=== PATIENT | male | born 1980 | race Caucasian/White ===

== ENCOUNTER 2019-03-19 05:19 | Emergency (ER) | payer OTHER, SELFPAY ==
--- NOTE | 2019-03-19 05:24 | ED_ITS ---
HPI - Back Pain/Injury General Chief Complaint: Back Pain/Injury Stated Complaint: back pain Time Seen by Provider: 03/19/19 05:21 Source: patient and family Mode of arrival: Ambulatory Limitations: no limitations History of Present Illness HPI Narrative: 38-year-old male nonsmoker with benign medical history presents with a chief complaint of severe sudden onset right flank pain with radiation around his right groin. He denies provocation or palliation. He states he was have intercourse and thinks he bent back awkwardly and felt this pain. He cannot find a position of comfort. He is nauseated has vomited a few times. Denies any history of the same even when he had a slipped disc. MD Complaint: back pain Onset (ago): hour(s) Duration: intermittent Similar Symptoms Previously: No Location: right flank Severity: severe Quality: sharp and aching Radiation: groin and flank Relieving factors: none Exacerbating factors: none Context: while lifting and turning/twisting Related Data Home Medications Medication Instructions Recorded Confirmed [ANTIBIOTIC-UNKNOWN] #0 06/20/08 [PAIN MEDICATION-UNK] #0 06/20/08 Previous Rx's Medication Instructions Recorded hydrocodone-acetaminophen 1 tab PO Q4-6H PRN #10 tab 03/19/19 ketorolac 10 mg PO Q6H PRN #14 tab 03/19/19 ondansetron 4 mg PO TID-QID PRN #10 tab 03/19/19 tamsulosin [Flomax] 0.4 mg PO DAILY #10 cap 03/19/19 Allergies Allergy/AdvReac Type Severity Reaction Status Date / Time No Known Drug Allergies Allergy Verified 03/19/19 06:09 Review of Systems Constitutional Constitutional: Denies chills, Denies fatigue, Denies fever(s), Denies frequent falls, Denies lethargy and Denies weakness Eyes Eyes: Denies change in vision, Denies eye discharge, Denies irritation and Denies loss of vision ENT Ears, Nose, Mouth, and Throat: Denies change in voice, Denies dizziness, Denies neck pain, Denies sore throat and Denies throat swelling Cardiovascular Cardiovascular: Denies chest pain, Denies irregular heart rhythm, Denies lightheadedness, Denies palpitations, Denies dyspnea, Denies dyspnea on exertion and Denies orthopnea Respiratory Respiratory: Denies cough, Denies dyspnea, Denies dyspnea on exertion and Denies wheezing Gastrointestinal Gastrointestinal: Denies abdominal pain, Denies change in bowel habits, Denies diarrhea, Reports nausea and Reports vomiting Genitourinary Genitourinary: Denies hematuria, Denies flank pain, Denies urinary incontinence and Denies urinary urgency Musculoskeletal Musculoskeletal: Denies back pain, Denies muscle weakness, Denies neck pain, Denies numbness and Denies tingling Integumentary/Breasts Skin/Breast: Denies pruritus, Denies erythema, Denies rash and Denies wounds Neurologic Neurologic: Denies behavioral changes, Denies confusion, Denies dizziness, Denies frequent falls, Denies loss of vision, Denies numbness, Denies tingling and Denies weakness Psychiatric Psychiatric: Denies anxiety, Denies behavioral changes, Denies confusion, Denies depression, Denies homicidal ideation and Denies suicidal ideation Endocrine Endocrine: Denies fatigue, Denies flushing and Denies palpitations Hematologic/Lymphatic Hematologic/Lymphatic: Denies easy bruising Allergic/Immunologic Allergic/Immunologic: Denies urticaria, Denies throat swelling and Denies wheezing PFSH Social History Smoking Status: Never smoker Social History Smoking Status: Never smoker Exam Narrative Exam Narrative: GENERAL: [38] year old patient appears stated age. Well- nourished, well-developed patient, in severe distress. Pacing in his room and clutching his right flank HEAD: Atraumatic. Normocephalic. EYES: Pupils equal round and reactive. Extraocular motions intact. No scleral icterus. No injection or drainage. ENT: Nose without bleeding, purulent drainage. Throat without erythema, tonsillar hypertrophy or exudate. Airway patent. NECK: Trachea midline. Non tender CARDIOVASCULAR: Regular rate and rhythm without murmurs, gallops, or rubs. RESPIRATORY: Clear to auscultation. Breath sounds equal bilaterally. No wheezes, rales, or rhonchi. GASTROINTESTINAL: Abdomen soft, non-tender, nondistended. EXTREMITIES: No edema or joint tenderness. BACK: Nontender without deformity or crepitance. No flank tenderness. NEURO: AOx3. SKIN: No rash or erythema of visible areas Initial Vital Signs Initial Vital Signs: Vital Signs Temperature 97.9 F 03/19/19 05:30 Pulse Rate 78 09/28/19 05:30 Respiratory Rate 24 03/19/19 05:30 Blood Pressure 168/104 H 03/19/19 05:30 Pulse Oximetry 100 03/19/19 05:30 Course Orders Ordered: Discontinued Medications Hydrocodone Bitart/Acetaminophen (Vicodin Prepack) 1 bottle MISC SEEINSTR ONE Stop: 03/19/19 06:58 Last Admin: 03/19/19 07:17 Dose: 1 bottle Documented by: ESTER Sodium Chloride (Normal Saline 0.9%) 1,000 mls @ 1,000 mls/hr IV BOLUS ONE Stop: 03/19/19 06:28 Last Infusion: 03/19/19 07:14 Dose: 0 mls/hr Documented by: Admin: 03/19/19 05:39 Dose: 1,000 mls/hr Documented by: RANDEE Lidocaine HCl 9 ml/ Sodium (Chloride) 59 mls @ 354 mls/hr IV NOW ONE Stop: 03/19/19 06:06 Last Infusion: 03/19/19 07:15 Dose: 354 mls/hr Documented by: Admin: 03/19/19 06:15 Dose: 354 mls/hr Documented by: ESTER Ketorolac Tromethamine (Toradol) 30 mg IV NOW ONE Stop: 03/19/19 05:30 Last Admin: 03/19/19 05:44 Dose: Not Given Documented by: ESTER Ketorolac Tromethamine (Toradol) 15 mg IV NOW ONE Stop: 03/19/19 05:35 Last Admin: 03/19/19 05:39 Dose: 15 mg Documented by: RANDEE Ondansetron HCl (Zofran) 4 mg IV NOW ONE Stop: 03/19/19 05:30 Last Admin: 03/19/19 05:30 Dose: 4 mg Documented by: ESTER Ondansetron HCl (Zofran Odt Prepack) 1 bottle MISC SEEINSTR ONE Stop: 03/19/19 06:58 Last Admin: 03/19/19 07:17 Dose: 1 bottle Documented by: ESTER Vital Signs Vital signs: Vital Signs - 8 hr 03/19/19 05:30 Temperature 97.9 F Pulse Rate 78 Respiratory Rate 24 Blood Pressure [Left Arm] 168/104 H Pulse Oximetry 100 MDM - Back Pain/Injury Lab Data Result diagrams: 03/19/19 05:20 03/19/19 05:20 Labs: Lab Results 03/19/19 03/19/19 03/19/19 Range/Units 05:20 05:20 08:40 WBC 8.7 (4.5-11.0) X10^3/uL RBC 5.56 (4.5-5.9) X10^6/uL Hgb 16.2 (13.5-17.5) g/dL Hct 46.7 (41-53) % MCV 83.9 (80-100) fL MCH 29.2 (26-34) PG MCHC 34.8 (30-36) % RDW 14.2 (11.6-14.8) % Plt Count 319 (150-400) X10^3/uL Neut % (Auto) 58.2 (50-75) % Lymph % (Auto) 34.1 (25-40) % [place] % (Auto) 5.9 (3-14) % Eos % (Auto) 0.9 L (2-4) % Baso % (Auto) 0.9 (0-2) % Neut # (Auto) 5100 (2269-3821) /uL Lymph # (Auto) 3000 (1871-9788) /uL [place] # (Auto) 500 (0-900) /uL Eos # (Auto) 100 (0-450) /uL Baso # (Auto) 100 (0-100) /uL Sodium 140 (137-145) mmol/L Potassium 4.1 (3.4-5.1) mmol/L Chloride 103 (98-107) mmol/L Carbon Dioxide 23 (22-32) mmol/L BUN 13 (9-20) mg/dL Creatinine 1.00 (0.66-1.25) mg/dL Estimated GFR > 60.0 (>60) mL/min BUN/Creatinine Ratio 13.0 (6-22) Glucose 143 H (70-100) mg/dL Calcium 9.7 (8.4-10.2) mg/dL Urine RBC >100/hpf (0-5/HPF) Urine WBC 0-1/hpf (0-5/HPF) Urine Bacteria Occasional (0-1) (None) Urine Mucus 1+ H (Negative) Ur Culture Indicated? Cult not indicated Urine Dip Bedside Urine Glucose Negative Bedside Urine Bilirubin - Negative Bedside Urine Ketone - Negative Urine Specific [place] 1.015 Bedside Urine Occult Blood +++ Bedside Urine pH 7.0 Bedside Urine Protein + 30 Bedside Urine Urobilinogen +/- 1mg Bedside Urine Nitrite - Negative Bedside Urine Leukocytes - Negative Esterase Discharge Plan Departure Patient Disposition: Home Clinical Impression: Kidney stone on right side Discharge Date/Time: 03/19/19 08:57 Instructions: DI for Kidney Stones Activity Restrictions/Additional Instructions: *You have been diagnosed with [kidney stones] *What to do: *Take medications as directed *Follow up with your primary care provider in 2-3 days, call for an appointment. Let them know you were seen in the Emergency Department and that we ask that you be seen in follow up *Return to ER if you should have any new, worsening or concerning symptoms Prescriptions: New tamsulosin [Flomax] 0.4 mg capsule 0.4 mg PO DAILY Qty: 10 RF: 0 hydrocodone-acetaminophen 5-325 mg tablet 1 tab PO Q4-6H PRN (Reason: pain) Qty: 10 RF: 0 ketorolac 10 mg tablet 10 mg PO Q6H PRN (Reason: pain) Qty: 14 RF: 0 ondansetron 4 mg tablet,disintegrating 4 mg PO TID-QID PRN (Reason: nausea and vomiting) Qty: 10 RF: 0 No Action [ANTIBIOTIC-UNKNOWN] Qty: 0 RF: 0 [PAIN MEDICATION-UNK] Qty: 0 RF: 0 Referrals: Mabel Yen MD [Non-Staff] -
[2019-03-19 05:30] VITALS: BP 168/104; PULSE 78; RESP 24; TEMP 36.6; O2SAT 100
[2019-03-19] MEDS: ONDANSETRON 4 MG/2 ML INJ IV (05:30)
--- NOTE | 2019-03-19 05:30 | DI.CT.S_ITS ---
PROCEDURE: CT ABDOMEN PELVIS WO CON INDICATIONS: severe sudden onset R flank pain radiates to groin TECHNIQUE: Noncontrast 5 mm thick sections acquired from the diaphragms to the symphysis. 5 mm thick coronal and sagittal reformats were then performed. For radiation dose reduction, the following was used: automated exposure control, adjustment of mA and/or kV according to patient size. COMPARISON: None. FINDINGS: Image quality: Excellent. Lung bases: There is a small pulmonary nodule in the left lower lobe measuring up to 5 mm mild dependent atelectasis is noted bilaterally. Heart size is normal. Urinary system: There is a small renal stone in the proximal to mid right ureter measuring up to 4 mm with associated mild right hydroureteronephrosis with minimal perinephric and periureteral fat stranding. No additional renal stones identified. No left hydronephrosis. The left ureter is normal in caliber. Bladder wall thickness is normal; no calcified bladder stones. Other solid organs: Noncontrast evaluation of the liver demonstrates no focal lesions. Gallbladder appears within normal limits. Pancreas is normal in contours. Spleen is normal in size. No adrenal nodules. Peritoneum and bowel: Small and large bowel loops demonstrate normal wall thickness and caliber. The appendix is normal in appearance. No free fluid or air. Nodes and vessels: No retroperitoneal or mesenteric adenopathy by size criteria. Aorta and inferior vena cava are normal in caliber. Abdominal wall: No ventral hernias. Pelvis: No free pelvic fluid. No inguinal hernias or adenopathy. Bones: No suspicious bony lesions. No vertebral body compression fractures. IMPRESSION: 1. Small obstructing 4 mm stone in the proximal to mid right ureter with mild right hydroureteronephrosis. 2. Small indeterminate 5 mm left lower lobe pulmonary nodule. If patient is at high risk for malignancy, recommend a followup CT in 12 months to demonstrate stability. Concordant with preliminary interpretation Dictated by: Michael Alexis M.D. on 03/19/2019 at 7:01 Approved by: Michael Alexis M.D. on 03/19/2019 at 7:06
[2019-03-19] MEDS: SODIUM CHLORIDE 0.9% 1,000 ML 1000 ML IV (05:39)
[2019-03-19] MEDS: KETOROLAC 60 MG/2 ML VIAL 15 MG IV (05:39)
[2019-03-19 05:43] LABS: Add Manual Diff / Slide Review NO; Basophils Absolute Auto 100 /uL (0-100); Basophils Percent Auto 0.9 % (0-2); Eosinophils Absolute Auto 100 /uL (0-450); Eosinophils Percent Auto 0.9 % (2-4); Hematocrit 46.7 % (41-53); Hemoglobin 16.2 g/dL (13.5-17.5); Lymphocytes Absolute Auto 3000 /uL (1100-4500); Lymphocytes Percent Auto 34.1 % (25-40); Mean Corpuscular HGB Conc 34.8 % (30-36); Mean Corpuscular Hemoglobin 29.2 PG (26-34); Mean Corpuscular Volume 83.9 fL (80-100); Monocytes Absolute Auto 500 /uL (0-900); Monocytes Percent Auto 5.9 % (3-14); Neutrophils Absolute Auto 5100 /uL (1500-7000); Neutrophils Percent Auto 58.2 % (50-75); Platelet Count 319 X10^3/uL (150-400); Red Blood Cell Count 5.56 X10^6/uL (4.5-5.9); Red Cell Distribution Width 14.2 % (11.6-14.8); White Blood Cell Count 8.7 X10^3/uL (4.5-11.0)
[2019-03-19 05:51] LABS: Blood Urea Nitrogen 13 mg/dL (9-20); Calcium 9.7 mg/dL (8.4-10.2); Carbon Dioxide 23 mmol/L (22-32); Chloride 103 mmol/L (98-107); Estimated Glomerular Filt Rate > 60.0 mL/min (>60); Glucose 143 mg/dL (70-100); HEMOLYSIS 23 (0-50); Potassium 4.1 mmol/L (3.4-5.1); Sodium 140 mmol/L (137-145)
[2019-03-19] MEDS: LIDOCAINE 2% IV (06:15)
[2019-03-19] MEDS: SODIUM CHLORIDE 0.9% IV (06:15)
[2019-03-19] MEDS: ONDANSETRON 4 MG ODT PREPACK 1 BOTTLE MISC (07:17)
[2019-03-19] MEDS: HYDROCODONE/ACET 5/325 PREPACK 1 BOTTLE MISC (07:17)
[2019-03-19 07:20] VITALS: BP 160/96; PULSE 73; RESP 16; O2SAT 98
[2019-03-19 08:49] VITALS: BP 163/83; PULSE 76; RESP 16; O2SAT 100
[2019-03-19 09:32] LABS: Bacteria Urine Occasional (0-1); Culture Indicated Urine Cult Not Indicated; Mucus Urine 1+ (Negative); RBC Urine >100/HPF (0-5/HPF); WBC Urine 0-1/HPF (0-5/HPF)
== END 2019-03-19 08:57 | disposition home or self-care (01) ==
PROVIDERS: Emergency Medicine; Emergency Provider Emergency Medicine
DX: N20.0 Calculus of kidney (principal)
CPT/HCPCS: 36415; 74176; 80048; 81003; 81015; 85025; 96361; 96365; 96375; 99283; 99284; J1885; J2405

== ENCOUNTER → 2020-09-21 14:53 | Outpatient (CLI) | payer OTHER, SELFPAY ==
[2020-09-21] MEDS: COVID-19 VACC #1, MRNA(MOD) 100 MCG/0.5 ML VIAL IM (14:59)
== END ==
PROVIDERS: Visit Provider Internal Medicine
DX: Z23 Encounter for immunization (principal)
CPT/HCPCS: 0011A; 91301

== ENCOUNTER → 2020-10-18 13:16 | Outpatient (ROUT) | payer OTHER, SELFPAY ==
[2020-10-18 14:15] LABS: COVID19 -Nasal RAPID Negative (Negative)
== END ==
PROVIDERS: Visit Provider Family Medicine
DX: Z20.822 Contact with and (suspected) exposure to COVID-19 (principal)
CPT/HCPCS: 87635

== ENCOUNTER → 2020-10-19 14:49 | Outpatient (CLI) | payer OTHER, SELFPAY ==
[2020-10-19] MEDS: COVID-19 VACC #2, MRNA(MOD) 100 MCG/0.5 ML VIAL IM (14:57)
== END ==
PROVIDERS: Visit Provider Internal Medicine
DX: Z23 Encounter for immunization (principal)
CPT/HCPCS: 0012A; 91301

== ENCOUNTER → 2021-01-26 11:39 | Outpatient (CLI) | payer OTHER, SELFPAY ==
--- NOTE | 2021-01-26 | DI.RAD.S_ITS ---
PROCEDURE: XR SACROILIAC JOINT MIN 3V INDICATIONS: Low Back Pain, Chronic and Acute TECHNIQUE: 3 views of the sacroiliac joints were acquired. COMPARISON: [facility], CR, XR LUMBAR SPINE 2-3V, 01/26/2021, 12:07. [facility], CR, XR ABDOMEN 1 VIEW, 03/24/2019, 13:33. [facility], CT, CT ABDOMEN PELVIS WO CON, 03/19/2019, 5:42. FINDINGS: Bones: No bony erosions or ankylosis. No suspicious bony lesions. No fractures. Soft tissues: Overlying bowel gas pattern is normal. No suspicious soft tissue densities. IMPRESSION: Sacroiliac joint plain films within normal limits. Dictated by: Salomón Crowley M.D. on 01/26/2021 at 11:46 Approved by: Salomón Crowley M.D. on 01/26/2021 at 11:47
--- NOTE | 2021-01-26 | DI.RAD.S_ITS ---
PROCEDURE: XR LUMBAR SPINE 2-3V INDICATIONS: Low Back Pain, Chronic and Acute TECHNIQUE: 3 views of the lumbar spine were acquired. COMPARISON: [facility], CT, CT ABDOMEN PELVIS WO CON, 03/19/2019, 5:42. [facility], CR, XR ABDOMEN 1 VIEW, 03/24/2019, 13:33. [facility], CR, XR SACROILIAC JOINT MIN 3V, 01/26/2021, 12:07. FINDINGS: Bones: 5 [id number] vertebrae are present. There is normal bony alignment. No vertebral body compression fractures. No suspicious bony lesions. The disc heights are well preserved. Mild lower lumbar spine facet arthropathy is seen. Soft tissues: Overlying bowel gas pattern is normal. No suspicious soft tissue calcifications. IMPRESSION: Lumbar plain films within normal limits for age. If it would be helpful for clinical management decision making, please consider a dedicated lumbar spine MRI for further evaluation (assuming that there is no contraindication). Dictated by: Salomón Crowley M.D. on 01/26/2021 at 11:45 Approved by: Salomón Crowley M.D. on 01/26/2021 at 11:46
== END ==
PROVIDERS: PCP Family Medicine; Referring Provider Family Medicine; Visit Provider Family Medicine
DX: M54.5 Low back pain (principal); G89.29 Other chronic pain
CPT/HCPCS: 72100; 72202

== ENCOUNTER → 2021-04-24 11:20 | Outpatient (ROUT) | payer OTHER, SELFPAY ==
[2021-04-24 12:15] LABS: COVID19 -Nasal RAPID Negative (Negative)
== END ==
PROVIDERS: PCP Family Medicine; Visit Provider Family Medicine
DX: Z20.822 Contact with and (suspected) exposure to COVID-19 (principal)
CPT/HCPCS: 87635

== ENCOUNTER → 2022-02-26 08:13 | Outpatient (CLI) | payer OTHER, SELFPAY ==
--- NOTE | 2022-02-26 08:22 | DI.RAD.S_ITS ---
PROCEDURE: XR FOOT LT MIN 3V INDICATIONS: L Foot pain/ Contustion L foot TECHNIQUE: 3 views of the foot were acquired. COMPARISON: None. FINDINGS: Bones: No fractures or dislocations. No suspicious bony lesions. Soft tissues: No tibiotalar joint effusion. Achilles tendon appears normal. IMPRESSION: No acute left foot fracture or dislocation. No gross soft tissue abnormalities. Dictated by: Varinder Ty M.D. on 02/26/2022 at 11:20 Approved by: Varinder Ty M.D. on 02/26/2022 at 11:27
== END ==
PROVIDERS: PCP Family Medicine; Referring Provider Family Medicine; Visit Provider Family Medicine
DX: M79.672 Pain in left foot (principal); S90.32XA Contusion of left foot, initial encounter
CPT/HCPCS: 73630

== ENCOUNTER → 2022-04-07 15:26 | Outpatient (CLI) | payer OTHER, SELFPAY ==
--- NOTE | 2022-04-07 15:27 | DI.MRI.S_ITS ---
PROCEDURE: MRFOOT LT WO CON INDICATIONS: Contusion of left foot, initial encounter TECHNIQUE: Noncontrast sagittal T1 spin echo and T2 fast spin echo with fat saturation, long-axis T1 spin echo and T2 fast spin echo with fat saturation, short-axis T1 spin echo and T2 fast spin echo with fat saturation through the forefoot. COMPARISON: [facility], CR, XR FOOT LT MIN 3V, 02/26/2022, 8:24. FINDINGS: Image quality: Excellent. Bones and joints: Osseous edema is seen within the proximal 3rd metatarsal with suspected nondisplaced fracture at the metatarsal base. There is surrounding soft tissue edema. Mild osseous edema 3rd cuneiform is likely reactive. Osseous edema in the 4th metatarsal may be reactive versus secondary to an osseous contusion or repetitive stress. Mild degenerative changes are seen in the 1st metatarsophalangeal joint. The sesamoids are normally aligned. Scattered degenerative changes are seen at the interphalangeal joints of the toes. Soft tissues: Soft tissue edema is seen surrounding the 3rd metatarsal fracture. The visualized plantar foot muscles otherwise demonstrate normal signal and bulk. Visualized flexor and extensor tendons appear intact, without tenosynovitis. The principal Lisfranc ligament appears intact. No soft tissue ganglion cysts or bursal fluid collections. Sagittal images demonstrate no evidence for plantar plate tears. IMPRESSION: 1. Nondisplaced fracture of the 3rd metatarsal base with surrounding osseous and soft tissue edema. Reactive edema is seen in the 3rd cuneiform. 2. Osseous edema within the 4th metatarsal may be reactive versus secondary to an osseous contusion or repetitive stress. Approved by: Dakota Lu M.D. on 04/08/2022 at 8:59
== END ==
PROVIDERS: PCP Family Medicine; Referring Provider Family Medicine; Visit Provider Family Medicine
DX: S92.335A Nondisplaced fracture of third metatarsal bone, left foot, initial encounter for closed fracture (principal); S90.32XA Contusion of left foot, initial encounter; X58.XXXA Exposure to other specified factors, initial encounter
CPT/HCPCS: 73718

== ENCOUNTER 2022-05-29 12:03 | Emergency (ER) | payer OTHER, SELFPAY ==
[2022-05-29 12:06] VITALS: BP 148/100; PULSE 84; RESP 16; TEMP 35.6; O2SAT 99; BMI 39.5
--- NOTE | 2022-05-29 12:12 | DI.RAD.S_ITS ---
PROCEDURE: XR RIBS RT MIN 3V W CXR 1V INDICATIONS: Lump/mass in the right upper quadrant rib area after coughing TECHNIQUE: 3 views of the right ribs were acquired, along with a single view chest. COMPARISON: None. FINDINGS: Surgical changes and devices: None. Bones and chest wall: No fractures or dislocations. No suspicious bony lesions. Overlying soft tissues appear unremarkable. Lungs and pleura: No pleural effusions or pneumothorax. Lungs appear clear. Mediastinum: Mediastinal contours appear normal. Heart size is normal. IMPRESSION: Normal study. No rib or chest wall or lung abnormality identified. Dictated by: Al Enamorado M.D. on 05/29/2022 at 11:38 Approved by: Al Enamorado M.D. on 05/29/2022 at 11:38
--- NOTE | 2022-05-29 12:24 | ED.URI ---
HPI - URI/Sore Throat <HARRIS Goodson - Last Filed: 05/29/22 16:14> General Chief Complaint: Abdominal Pain Stated Complaint: ABD pain Time Seen by Provider: 05/29/22 12:19 Source: patient Mode of arrival: Ambulatory History of Present Illness HPI Narrative: This is a 42-year-old male presents to the emergency department complaining of cough for the last 1 week, increased congestion, feeling short of today dizziness, right upper quadrant rib pain. He states that he has been coughing a lot and today he noticed a bulge after a coughing episode on his right abdomen was concerned he injured a rib. He denies nausea vomiting, denies any diarrhea, denies fever or chills but states that he has been not feeling well for a week or longer. He states that his symptoms or flu-like, denies chest pain or difficulty breathing, denies weakness, states that he feels lightheaded. His bulge to his right abdomen has improved, states it was tender at 1st but then went away. He denies stool changes, vomiting, diarrhea, has been using [id number] cold medicine for his symptoms. Related Data Home Medications Medication Instructions Recorded Confirmed [ANTIBIOTIC-UNKNOWN] ##0 06/20/08 [PAIN MEDICATION-UNK] ##0 06/20/08 Previous Rx's Medication Instructions Recorded hydrocodone 5 mg-acetaminophen 325 1 tab PO Q4-6H PRN pain #10 tabs 03/19/19 mg tablet ketorolac 10 mg tablet 10 mg PO Q6H PRN pain #14 tabs 03/19/19 ondansetron 4 mg disintegrating 4 mg PO TID-QID PRN nausea and 03/19/19 tablet vomiting #10 tabs tamsulosin 0.4 mg capsule (Flomax) 0.4 mg PO DAILY #10 caps 03/19/19 Allergies Allergy/AdvReac Type Severity Reaction Status Date / Time No Known Drug Allergies Allergy Verified 05/29/22 12:06 Review of Systems <HARRIS Goodson - Last Filed: 05/29/22 16:14> Review of Systems ROS Unobtainable: All systems reviewed & are unremarkable except as noted in HPI and below Patient History <HARRIS Goodson - Last Filed: 05/29/22 16:14> Social History Smoking Status: Never smoker Smoking Status: Never smoker alcohol intake frequency: a few times a month Substance Use Type: does not use Exam <HARRIS Goodson - Last Filed: 05/29/22 16:14> Narrative Exam Narrative: Reviewed vitals signs and nursing notes. General: cooperative, in no acute distress, well groomed, elevated BMI, patient appears uncomfortable HEENT: symmetrical facial expressions, moist mucous membranes Cardiovascular: regular rate and rhythm, no peripheral edema, warm extremities Respiratory: normal effort, able to speak in complete sentences, without wheezing, stridor, or abnormal breath sounds. No retractions or tachypnea. GI: abdomen soft, nontender to palpation, nondistended, without masses, rebound tenderness or exquisite tenderness with exam. No CVA tenderness bilaterally MSK: moves all extremities, neurovascularly intact, no weakness, normal tone Skin: brisk capillary refill, without pallor or erythema Neuro: normal speech and cognition, A&O x3, ambulatory, clear speech Psych: mental status is grossly normal, congruent mood, normal affect, pleasant and cooperative Initial Vital Signs Initial Vital Signs: Vital Signs Temperature 96.0 F L 05/29/22 12:06 Pulse Rate 84 05/29/22 12:06 Respiratory Rate 16 05/29/22 12:06 Blood Pressure 148/100 H 05/29/22 12:06 Pulse Oximetry 99 05/29/22 12:06 Oxygen Delivery Method 05/29/22 12:06 <Miquel Cody MD - Last Filed: 05/29/22 17:39> Initial Vital Signs Initial Vital Signs: Vital Signs Temperature 96.0 F L 05/29/22 12:06 Pulse Rate 84 05/29/22 12:06 Respiratory Rate 16 05/29/22 12:06 Blood Pressure 148/100 H 05/29/22 12:06 Pulse Oximetry 99 05/29/22 12:06 Oxygen Delivery Method 05/29/22 12:06 Course <HARRIS Goodson - Last Filed: 05/29/22 16:14> Orders Ordered: ED Orders 05/29/22 12:12 XR ribs RT min 3V w CXR1V Stat 05/29/22 12:18 Complete Blood Count AUTO DIFF Stat Comprehensive Metabolic Panel Stat Lipase Stat Prothrombin Time INR Stat 05/29/22 14:53 Covid-19 + FLU A/B + RSV - PCR Stat 05/29/22 15:23 Urine Culture Stat Urine Microscopic Stat Discontinued Medications Acetaminophen (Acetaminophen 325 Mg Tablet) 975 mg PO NOW ONE Stop: 05/29/22 12:27 Last Admin: 05/29/22 15:14 Dose: 975 mg Documented By: RB Ketorolac Tromethamine (Ketorolac 30 Mg/Ml Vial) 30 mg IV NOW ONE Stop: 05/29/22 12:27 Last Admin: 05/29/22 15:15 Dose: 30 mg Documented By: RB Ondansetron HCl (Ondansetron 4 Mg/2 Ml Inj) 4 mg IV NOW PRN PRN Reason: Nausea And Vomiting Last Admin: 05/29/22 15:16 Dose: 4 mg Documented By: RB Vital Signs Vital signs: Vital Signs - 8 hr 05/29/22 12:06 05/29/22 14:41 05/29/22 14:38 Temperature 96.0 F L 98.0 F Pulse Rate 84 75 Respiratory Rate 16 Blood Pressure 148/100 H 152/80 H 152/80 H Pulse Oximetry 99 96 Oxygen Delivery Method Room Air Room Air 05/29/22 14:38 05/29/22 15:00 05/29/22 15:01 Temperature Pulse Rate 81 72 73 Respiratory Rate Blood Pressure Pulse Oximetry 95 95 95 Oxygen Delivery Method 05/29/22 15:01 05/29/22 16:08 Temperature Pulse Rate 79 Respiratory Rate 18 Blood Pressure 131/63 123/81 Pulse Oximetry 95 Oxygen Delivery Method Room Air <Miquel Cody MD - Last Filed: 05/29/22 17:39> Orders Ordered: ED Orders 05/29/22 12:12 XR ribs RT min 3V w CXR1V Stat 05/29/22 12:18 Complete Blood Count AUTO DIFF Stat Comprehensive Metabolic Panel Stat Lipase Stat Prothrombin Time INR Stat 05/29/22 14:53 Covid-19 + FLU A/B + RSV - PCR Stat 05/29/22 15:23 Urine Culture Stat Urine Microscopic Stat Discontinued Medications Acetaminophen (Acetaminophen 325 Mg Tablet) 975 mg PO NOW ONE Stop: 05/29/22 12:27 Last Admin: 05/29/22 15:14 Dose: 975 mg Documented By: RB Ketorolac Tromethamine (Ketorolac 30 Mg/Ml Vial) 30 mg IV NOW ONE Stop: 05/29/22 12:27 Last Admin: 05/29/22 15:15 Dose: 30 mg Documented By: RB Ondansetron HCl (Ondansetron 4 Mg/2 Ml Inj) 4 mg IV NOW PRN PRN Reason: Nausea And Vomiting Last Admin: 05/29/22 15:16 Dose: 4 mg Documented By: RB Vital Signs Vital signs: Vital Signs - 8 hr 05/29/22 12:06 05/29/22 14:41 05/29/22 14:38 Temperature 96.0 F L 98.0 F Pulse Rate 84 75 Respiratory Rate 16 Blood Pressure 148/100 H 152/80 H 152/80 H Pulse Oximetry 99 96 Oxygen Delivery Method Room Air Room Air 05/29/22 14:38 05/29/22 15:00 05/29/22 15:01 Temperature Pulse Rate 81 72 73 Respiratory Rate Blood Pressure Pulse Oximetry 95 95 95 Oxygen Delivery Method 05/29/22 15:01 05/29/22 16:08 Temperature Pulse Rate 79 Respiratory Rate 18 Blood Pressure 131/63 123/81 Pulse Oximetry 95 Oxygen Delivery Method Room Air MDM - URI/Sore Throat <July Ruelas [employer] - Last Filed: 05/29/22 16:14> Lab Data Result diagrams: 05/29/22 12:18 05/29/22 12:18 Labs: Lab Results 05/29/22 05/29/22 05/29/22 Range/Units 12:18 12:18 12:18 WBC 6.2 (4.5-11.0) X10^3/uL RBC 5.66 (4.5-5.9) X10^6/uL Hgb 16.0 (13.5-17.5) g/dL Hct 46.5 (41-53) % MCV 82.2 (80-100) fL MCH 28.3 (26-34) PG MCHC 34.4 (30-36) % RDW 14.3 (11.6-14.8) % Plt Count 238 (150-400) X10^3/uL Neut % (Auto) 64.8 (50-75) % Lymph % (Auto) 25.7 (25-40) % [place] % (Auto) 8.7 (3-14) % Eos % (Auto) 0.1 L (2-4) % Baso % (Auto) 0.7 (0-2) % Neut # (Auto) 4000 (0156-2497) /uL Lymph # (Auto) 1600 (9209-1039) /uL [place] # (Auto) 500 (0-900) /uL Eos # (Auto) 0 (0-450) /uL Baso # (Auto) 0 (0-100) /uL PT 13.9 H (10.1-12.7) SECONDS INR 1.2 (0.9-1.3) Sodium 134 L (137-145) mmol/L Potassium 3.8 (3.4-5.1) mmol/L Chloride 92 L (98-107) mmol/L Carbon Dioxide 30 (22-32) mmol/L BUN 19 (9-20) mg/dL Creatinine 0.91 (0.66-1.25) mg/dL Estimated GFR > 60 (>60) mL/min BUN/Creatinine Ratio 20.9 (6-22) Glucose 134 H (70-100) mg/dL Calcium 8.4 (8.4-10.2) mg/dL Total Bilirubin 0.4 (0.2-1.3) mg/dL AST 80 H (17-59) IU/L ALT 98 H (<50) IU/L Alkaline Phosphatase 61 (38-126) U/L Total Protein 7.8 (6.3-8.2) g/dL Albumin 4.1 (3.5-5.0) g/dL Globulin 3.7 (1.7-4.1) g/dL Albumin/Globulin Ratio 1.1 (1.0-2.8) Lipase 229 (23-300) U/L Urine RBC (0-5/HPF) Urine WBC (0-5/HPF) Ur Squamous Epith Cells (0-5/HPF) Urine Bacteria (None) Urine Yeast (None) SARS-CoV-2 (PCR) (Negative) Influenza A (RT-PCR) (NEGATIVE) Influenza B (RT-PCR) (NEGATIVE) RSV (PCR) (Negative) 05/29/22 05/29/22 Range/Units 14:53 15:23 WBC (4.5-11.0) X10^3/uL RBC (4.5-5.9) X10^6/uL Hgb (13.5-17.5) g/dL Hct (41-53) % MCV (80-100) fL MCH (26-34) PG MCHC (30-36) % RDW (11.6-14.8) % Plt Count (150-400) X10^3/uL Neut % (Auto) (50-75) % Lymph % (Auto) (25-40) % [place] % (Auto) (3-14) % Eos % (Auto) (2-4) % Baso % (Auto) (0-2) % Neut # (Auto) (9926-5714) /uL Lymph # (Auto) (9484-5733) /uL [place] # (Auto) (0-900) /uL Eos # (Auto) (0-450) /uL Baso # (Auto) (0-100) /uL PT (10.1-12.7) SECONDS INR (0.9-1.3) Sodium (137-145) mmol/L Potassium (3.4-5.1) mmol/L Chloride (98-107) mmol/L Carbon Dioxide (22-32) mmol/L BUN (9-20) mg/dL Creatinine (0.66-1.25) mg/dL Estimated GFR (>60) mL/min BUN/Creatinine Ratio (6-22) Glucose (70-100) mg/dL Calcium (8.4-10.2) mg/dL Total Bilirubin (0.2-1.3) mg/dL AST (17-59) IU/L ALT (<50) IU/L Alkaline Phosphatase (38-126) U/L Total Protein (6.3-8.2) g/dL Albumin (3.5-5.0) g/dL Globulin (1.7-4.1) g/dL Albumin/Globulin Ratio (1.0-2.8) Lipase (23-300) U/L Urine RBC 5-10/hpf H (0-5/HPF) Urine WBC 1-5/hpf (0-5/HPF) Ur Squamous Epith Cells 1-5 /hpf (0-5/HPF) Urine Bacteria Few (2-10) H (None) Urine Yeast 5-10/hpf H (None) SARS-CoV-2 (PCR) Negative (Negative) Influenza A (RT-PCR) Flu a positive H (NEGATIVE) Influenza B (RT-PCR) Flu b negative (NEGATIVE) RSV (PCR) Negative (Negative) Urine Dip Bedside Urine Glucose Negative Bedside Urine Bilirubin - Negative Bedside Urine Ketone - Negative Urine Specific [place] 1.030 Bedside Urine Occult Blood +++ Bedside Urine pH 6.0 Bedside Urine Protein +++ 300 Bedside Urine Urobilinogen 0.25 Bedside Urine Nitrite - Negative Bedside Urine Leukocytes - Negative Esterase Imaging Data Chest x-ray: Radiologist's Impression: PROCEDURE:? XR RIBS RT MIN 3V W CXR 1V ? INDICATIONS:? Lump/mass in the right upper quadrant rib area after coughing ? TECHNIQUE:? 3 views of the right ribs were acquired, along with a single view chest.? ? COMPARISON:? None. ? FINDINGS:? ? Surgical changes and devices:? None.? ? Bones and chest wall:? No fractures or dislocations.? No suspicious bony lesions.? Overlying soft tissues appear unremarkable.? ? Lungs and pleura:? No pleural effusions or pneumothorax.? Lungs appear clear.? ? Mediastinum:? Mediastinal contours appear normal.? Heart size is normal.? ? IMPRESSION:? Normal study.? No rib or chest wall or lung abnormality identified. ? ? Dictated by: Al Enamorado M.D. on 05/29/2022 at 11:38 ? ? Approved by: Al Enamorado M.D. on 05/29/2022 at 11:38 ? MDM Narrative Medical decision making narrative: This is a 42-year-old male emergency department complaining of a cough for last, a coughing episode today cause right upper abdomen pain and a transient molars to his right abdomen, states that he thinks it is a pulled muscle or something similar. On exam, patient's breath sounds are clear bilaterally, x-rays negative for acute abnormality, his respiratory panel came back positive for influenza a, he did not have exquisite tenderness over the gallbladder or right upper quadrant during deep inspiration, he had mild tenderness superficially, this is most likely a muscle strain although considered cholecystitis, cholelithiasis, pyelonephritis, acute cystitis, patient has a history of BPH, his UA does show blood with small amount of bacteria but patient denies any urinary symptoms and he takes Flomax at baseline. He denies fever chills, states that his symptoms have improved mildly since he has been here, his primary care provider is Dr. Love, discussed ultrasound to right upper quadrant and patient does not have any significant findings of cholecystitis or cholelithiasis, his blood work is unremarkable, mild elevation of his AST and ALT without elevation of other liver enzymes. Patient understands to follow-up with his PCP if symptoms of worsening, discharge with return precautions, No peritoneal signs on abdominal exam. Patient remains p.o. tolerant. Serial abdominal exam without increase in abdominal pain. Given history and exam, low suspicion for acute abdominal process, such as acute cholecystitis, pancreatitis, perforated viscus, atypical appendicitis, colitis, diverticulitis or torsion. Extensive conversation about ER return precautions and need for close follow-up. He is p.o. tolerant, wishes to be discharged. <Miquel Cody MD - Last Filed: 05/29/22 17:39> Lab Data Labs: Lab Results 05/29/22 05/29/22 05/29/22 Range/Units 12:18 12:18 12:18 WBC 6.2 (4.5-11.0) X10^3/uL RBC 5.66 (4.5-5.9) X10^6/uL Hgb 16.0 (13.5-17.5) g/dL Hct 46.5 (41-53) % MCV 82.2 (80-100) fL MCH 28.3 (26-34) PG MCHC 34.4 (30-36) % RDW 14.3 (11.6-14.8) % Plt Count 238 (150-400) X10^3/uL Neut % (Auto) 64.8 (50-75) % Lymph % (Auto) 25.7 (25-40) % [place] % (Auto) 8.7 (3-14) % Eos % (Auto) 0.1 L (2-4) % Baso % (Auto) 0.7 (0-2) % Neut # (Auto) 4000 (4226-3501) /uL Lymph # (Auto) 1600 (5903-0397) /uL [place] # (Auto) 500 (0-900) /uL Eos # (Auto) 0 (0-450) /uL Baso # (Auto) 0 (0-100) /uL PT 13.9 H (10.1-12.7) SECONDS INR 1.2 (0.9-1.3) Sodium 134 L (137-145) mmol/L Potassium 3.8 (3.4-5.1) mmol/L Chloride 92 L (98-107) mmol/L Carbon Dioxide 30 (22-32) mmol/L BUN 19 (9-20) mg/dL Creatinine 0.91 (0.66-1.25) mg/dL Estimated GFR > 60 (>60) mL/min BUN/Creatinine Ratio 20.9 (6-22) Glucose 134 H (70-100) mg/dL Calcium 8.4 (8.4-10.2) mg/dL Total Bilirubin 0.4 (0.2-1.3) mg/dL AST 80 H (17-59) IU/L ALT 98 H (<50) IU/L Alkaline Phosphatase 61 (38-126) U/L Total Protein 7.8 (6.3-8.2) g/dL Albumin 4.1 (3.5-5.0) g/dL Globulin 3.7 (1.7-4.1) g/dL Albumin/Globulin Ratio 1.1 (1.0-2.8) Lipase 229 (23-300) U/L Urine RBC (0-5/HPF) Urine WBC (0-5/HPF) Ur Squamous Epith Cells (0-5/HPF) Urine Bacteria (None) Urine Yeast (None) SARS-CoV-2 (PCR) (Negative) Influenza A (RT-PCR) (NEGATIVE) Influenza B (RT-PCR) (NEGATIVE) RSV (PCR) (Negative) 05/29/22 05/29/22 Range/Units 14:53 15:23 WBC (4.5-11.0) X10^3/uL RBC (4.5-5.9) X10^6/uL Hgb (13.5-17.5) g/dL Hct (41-53) % MCV (80-100) fL MCH (26-34) PG MCHC (30-36) % RDW (11.6-14.8) % Plt Count (150-400) X10^3/uL Neut % (Auto) (50-75) % Lymph % (Auto) (25-40) % [place] % (Auto) (3-14) % Eos % (Auto) (2-4) % Baso % (Auto) (0-2) % Neut # (Auto) (6589-0302) /uL Lymph # (Auto) (0329-5204) /uL [place] # (Auto) (0-900) /uL Eos # (Auto) (0-450) /uL Baso # (Auto) (0-100) /uL PT (10.1-12.7) SECONDS INR (0.9-1.3) Sodium (137-145) mmol/L Potassium (3.4-5.1) mmol/L Chloride (98-107) mmol/L Carbon Dioxide (22-32) mmol/L BUN (9-20) mg/dL Creatinine (0.66-1.25) mg/dL Estimated GFR (>60) mL/min BUN/Creatinine Ratio (6-22) Glucose (70-100) mg/dL Calcium (8.4-10.2) mg/dL Total Bilirubin (0.2-1.3) mg/dL AST (17-59) IU/L ALT (<50) IU/L Alkaline Phosphatase (38-126) U/L Total Protein (6.3-8.2) g/dL Albumin (3.5-5.0) g/dL Globulin (1.7-4.1) g/dL Albumin/Globulin Ratio (1.0-2.8) Lipase (23-300) U/L Urine RBC 5-10/hpf H (0-5/HPF) Urine WBC 1-5/hpf (0-5/HPF) Ur Squamous Epith Cells 1-5 /hpf (0-5/HPF) Urine Bacteria Few (2-10) H (None) Urine Yeast 5-10/hpf H (None) SARS-CoV-2 (PCR) Negative (Negative) Influenza A (RT-PCR) Flu a positive H (NEGATIVE) Influenza B (RT-PCR) Flu b negative (NEGATIVE) RSV (PCR) Negative (Negative) Urine Dip Bedside Urine Glucose Negative Bedside Urine Bilirubin - Negative Bedside Urine Ketone - Negative Urine Specific [place] 1.030 Bedside Urine Occult Blood +++ Bedside Urine pH 6.0 Bedside Urine Protein +++ 300 Bedside Urine Urobilinogen 0.25 Bedside Urine Nitrite - Negative Bedside Urine Leukocytes - Negative Esterase Discharge Plan Departure Patient Disposition: Home Clinical Impression: Influenza A, Abdominal pain, acute, right upper quadrant Instructions: Influenza, Abdominal Muscle Strain Activity Restrictions/Additional Instructions: *You have been diagnosed with influenza a, and right upper quadrant pain and tenderness which could be a muscle strain from coughing, costochondritis which is inflammation the cartilage, gallbladder pain which she would notice after a fatty meal, you would have diarrhea and possible nausea vomiting. Flu causes nausea and vomiting sometimes, please use ibuprofen 800 mg with Tylenol 975 mg every 6-8 hours as needed for your symptoms, you can use [id number] cough medication like DayQuil or NyQuil, Zyrtec for increased congestion, and throat lozenges for persistent cough. Please return for new or worsening symptoms, your chest x-ray with rib x-ray does not show pneumonia, no fractures or dislocations, soft tissue over the bones and chest wall appeared normal. Please stay hydrated, return for new or worsening symptoms, follow-up with your primary care provider if you need an outpatient referral for an ultrasound or scan if your symptoms worsen. *What to do: *Please continue to take your regular medications as directed. [ ] New medication prescriptions sent to your pharmacy: [ ] [ ] New medication written as a paper prescription [x ] No new medications given *Please follow up with your primary care provider in 2-3 days, call for an appointment. Let them know you were seen in the Emergency Department and that we asked that you be seen for follow-up. We will electronically transmit a record of today's note if your PCP is in our system *If you do not have a primary care provider please contact [phone] to establish care with one of the [facility] primary care providers. *Return to Emergency Department if you should have any new, worsening, or concerning symptoms, such as [fever greater than 101F, chills, worsening pain, persistent vomiting or other bothersome symptoms]. Prescriptions: No Action [ANTIBIOTIC-UNKNOWN] Qty: 0 [PAIN MEDICATION-UNK] Qty: 0 tamsulosin [Flomax] 0.4 mg capsule 0.4 mg PO DAILY Qty: 10 0RF hydrocodone-acetaminophen 5-325 mg tablet 1 tab PO Q4-6H PRN (Reason: pain) Qty: 10 0RF ketorolac 10 mg tablet 10 mg PO Q6H PRN (Reason: pain) Qty: 14 0RF ondansetron 4 mg tablet,disintegrating 4 mg PO TID-QID PRN (Reason: nausea and vomiting) Qty: 10 0RF Referrals: Aspen Love MD [Primary Care Provider] - Visit Report Forms: Patient Portal/API <Miquel Cody MD - Last Filed: 05/29/22 17:39> Cosign ED Attending Cosignature Attestation: I was immediately available in the department for consultation. ?This documentation has been reviewed and I agree with assessment and plan. Supervised by Miquel Cody MD
[2022-05-29 12:30] LABS: Add Manual Diff / Slide Review NO; Basophils Absolute Auto 0 /uL (0-100); Basophils Percent Auto 0.7 % (0-2); Eosinophils Absolute Auto 0 /uL (0-450); Eosinophils Percent Auto 0.1 % (2-4); Hematocrit 46.5 % (41-53); Lymphocytes Absolute Auto 1600 /uL (1100-4500); Lymphocytes Percent Auto 25.7 % (25-40); Mean Corpuscular HGB Conc 34.4 % (30-36); Mean Corpuscular Hemoglobin 28.3 PG (26-34); Mean Corpuscular Volume 82.2 fL (80-100); Monocytes Absolute Auto 500 /uL (0-900); Monocytes Percent Auto 8.7 % (3-14); Neutrophils Absolute Auto 4000 /uL (1500-7000); Neutrophils Percent Auto 64.8 % (50-75); Platelet Count 238 X10^3/uL (150-400); Red Blood Cell Count 5.66 X10^6/uL (4.5-5.9); Red Cell Distribution Width 14.3 % (11.6-14.8); White Blood Cell Count 6.2 X10^3/uL (4.5-11.0)
[2022-05-29 12:35] LABS: INR 1.2 (0.9-1.3); Prothrombin Time 13.9 SECONDS (10.1-12.7)
[2022-05-29 12:40] LABS: Alanine Aminotransferase 98 IU/L (<50); Albumin 4.1 g/dL (3.5-5.0); Albumin Globulin Ratio 1.1 (1.0-2.8); Alkaline Phosphatase 61 U/L (38-126); Aspartate Aminotransferase 80 IU/L (17-59); BUN Creatinine Ratio 20.9 (6-22); Bilirubin Total 0.4 mg/dL (0.2-1.3); Blood Urea Nitrogen 19 mg/dL (9-20); Calcium 8.4 mg/dL (8.4-10.2); Carbon Dioxide 30 mmol/L (22-32); Chloride 92 mmol/L (98-107); Estimated Glomerular Filt Rate > 60 mL/min (>60); Globulin 3.7 g/dL (1.7-4.1); Glucose 134 mg/dL (70-100); HEMOLYSIS < 15 (0-50); Lipase 229 U/L (23-300); Potassium 3.8 mmol/L (3.4-5.1); Sodium 134 mmol/L (137-145); Total Protein 7.8 g/dL (6.3-8.2)
[2022-05-29 14:38] VITALS: BP 152/80; PULSE 81; O2SAT 95
[2022-05-29 14:41] VITALS: BP 152/80; PULSE 75; TEMP 36.7; O2SAT 96
[2022-05-29 15:00] VITALS: PULSE 72; O2SAT 95
[2022-05-29 15:01] VITALS: BP 131/63; PULSE 73; O2SAT 95
[2022-05-29] MEDS: ACETAMINOPHEN 325 MG TABLET 975 MG PO (15:14)
[2022-05-29] MEDS: KETOROLAC 30 MG/ML VIAL IV (15:15)
[2022-05-29] MEDS: ONDANSETRON 4 MG/2 ML INJ IV (15:16)
[2022-05-29 15:37] LABS: Bacteria Urine Few (2-10); RBC Urine 5-10/HPF (0-5/HPF); Squamous Epithelial Cell Urine 1-5 /HPF (0-5/HPF); WBC Urine 1-5/HPF (0-5/HPF)
[2022-05-29 15:40] LABS: Influenza A - CEPHEID Flu A POSITIVE (NEGATIVE); Influenza B - CEPHEID Flu B NEGATIVE (NEGATIVE); Respiratory Syncytial Virus Negative (Negative)
[2022-05-29 15:47] LABS: COVID-19 CEPHEID 4-PLEX PCR Negative (Negative)
[2022-05-29 16:08] VITALS: BP 123/81; PULSE 79; RESP 18; O2SAT 95
== END 2022-05-29 16:09 | disposition home or self-care (01) ==
PROVIDERS: Emergency Medicine; Emergency Provider Nurse Practitioner Critical Care Medicine; PCP Family Medicine
DX: J10.1 Influenza due to other identified influenza virus with other respiratory manifestations (principal); R10.11 Right upper quadrant pain
CPT/HCPCS: 0241U; 36415; 71101; 80053; 81003; 81015; 83690; 85025; 85610; 87086; 96374; 96375; 99284; J1885; J2405

== ENCOUNTER → 2022-07-16 15:07 | Outpatient (CLI) | payer OTHER, SELFPAY ==
--- NOTE | 2022-07-16 16:11 | DI.MRI.S_ITS ---
PROCEDURE: MRFOOT LT WO CON INDICATIONS: F/U FOOT FRACTURE TECHNIQUE: Noncontrast sagittal T1 spin echo and T2 fast spin echo with fat saturation, long-axis T1 spin echo and T2 fast spin echo with fat saturation, short-axis T1 spin echo and T2 fast spin echo with fat saturation through the forefoot. COMPARISON: [facility], , MR FOOT LT WO CON, 04/07/2022, 16:10. FINDINGS: Image quality: Excellent. Bones and joints: There is significant marrow edema involving 3rd metatarsal shaft as well as base and proximal shaft of 4th metatarsal bone. Linear hypointense signals are noted within 3rd metatarsal base. Overall extent of edema has decreased since previous study. No definite fracture line is noted involving 4th metatarsal base. No new area of abnormal marrow signal is seen. No suspicious bony lesions. Soft tissues: The visualized plantar foot muscles demonstrate normal signal and bulk. Visualized flexor and extensor tendons appear intact, without tenosynovitis. The distal insertions of the peroneus brevis and longus tendons appear intact. The principal Lisfranc ligament appears intact. No soft tissue ganglion cysts or bursal fluid collections. Sagittal images demonstrate no evidence for plantar plate tears. IMPRESSION: 1. Persistent nondisplaced stress fracture involving 3rd metatarsal base with extensive marrow edema in 3rd metatarsal shaft slightly decreased compared to previous study suggestive of interval healing. 2. Mild residual marrow edema in 4th proximal phalangeal shaft without definite fracture line not significantly changed from prior study and likely represent stress reaction or contusion. 3. No new area of abnormal marrow signal is seen. Dictated by: Varinder Ty M.D. on 07/16/2022 at 17:11 Approved by: Varinder Ty M.D. on 07/16/2022 at 17:15
== END ==
PROVIDERS: PCP Family Medicine; Referring Provider Family Medicine; Visit Provider Family Medicine
DX: S92.335A Nondisplaced fracture of third metatarsal bone, left foot, initial encounter for closed fracture (principal); X58.XXXA Exposure to other specified factors, initial encounter
CPT/HCPCS: 73718

== ENCOUNTER → 2022-08-12 10:43 | Outpatient (CLI) | payer OTHER, SELFPAY ==
--- NOTE | 2022-08-12 | DI.RAD.S_ITS ---
PROCEDURE: XR FOOT RT MIN 3V INDICATIONS: right foot injury TECHNIQUE: 3 views of the foot were acquired. COMPARISON: [facility], MR, MR FOOT LT WO CON, 07/16/2022, 15:20. [facility], CR, XR FOOT LT MIN 3V, 02/26/2022, 8:24. FINDINGS: Bones: No fractures or dislocations. Tiny plantar and dorsal calcaneal enthesophytes are seen. No suspicious bony lesions. Soft tissues: No tibiotalar joint effusion. Achilles tendon appears normal. IMPRESSION: No acute right foot fracture or dislocation. No gross soft tissue abnormalities. Dictated by: Varinder Ty M.D. on 08/12/2022 at 11:07 Approved by: Varinder Ty M.D. on 08/12/2022 at 11:08
== END ==
PROVIDERS: PCP Family Medicine; Referring Provider Family Medicine; Visit Provider Family Medicine
DX: S99.921A Unspecified injury of right foot, initial encounter (principal); X58.XXXA Exposure to other specified factors, initial encounter
CPT/HCPCS: 73630

== ENCOUNTER → 2022-08-14 07:06 | Outpatient (CLI) | payer OTHER, SELFPAY ==
--- NOTE | 2022-08-14 | DI.MRI.S_ITS ---
PROCEDURE: MR FOOT RT WO CON INDICATIONS: Pain in right foot TECHNIQUE: Noncontrast sagittal T1 spin echo and T2 fast spin echo with fat saturation, long-axis T1 spin echo and T2 fast spin echo with fat saturation, short-axis T1 spin echo and T2 fast spin echo with fat saturation through the forefoot. COMPARISON: None. FINDINGS: Image quality: Excellent. Bones and joints: There is marrow edema involving base and proximal shaft of 3rd and 4th metatarsal bones with subtle internal linear hypointense signal concerning for early stress fractures . No cortical disruption is seen. No significant cortical thickening or periosteal reaction. Nonspecific intraosseous cyst formation within navicular bone is seen. No other area of abnormal marrow signal. No acute displaced fracture. No dislocation. Soft tissues: The visualized plantar foot muscles demonstrate normal signal and bulk. Visualized flexor and extensor tendons appear intact, without tenosynovitis. The distal insertions of the peroneus brevis and longus tendons appear intact. The principal Lisfranc ligament appears intact. No soft tissue ganglion cysts or bursal fluid collections. Sagittal images demonstrate no evidence for plantar plate tears. IMPRESSION: 1. Finding is concerning for early stress fracture or stress related changes involving 3rd and 4th metatarsal bases and proximal shafts. No cortical disruption is noted at this time. No significant periosteal reaction. No other area of abnormal marrow signal. Nonspecific intraosseous cyst formation in navicular bone. 2. Tendons and ligaments of midfoot and forefoot are intact. No gross plantar foot muscle signal abnormalities. Dictated by: Varinder Ty M.D. on 08/14/2022 at 10:19 Approved by: Varinder Ty M.D. on 08/14/2022 at 10:20
== END ==
PROVIDERS: PCP Family Medicine; Referring Provider Family Medicine; Visit Provider Family Medicine
DX: M79.671 Pain in right foot (principal)
CPT/HCPCS: 73718

== ENCOUNTER → 2022-11-12 15:40 | Outpatient (CLI) | payer OTHER, SELFPAY ==
--- NOTE | 2022-11-12 15:43 | DI.MRI.S_ITS ---
PROCEDURE: MRFOOT LT WO CON INDICATIONS: BILATERAL FOOT FX TECHNIQUE: Noncontrast sagittal T1 spin echo and T2 fast spin echo with fat saturation, long-axis T1 spin echo and T2 fast spin echo with fat saturation, short-axis T1 spin echo and T2 fast spin echo with fat saturation through the forefoot. COMPARISON: [facility], , MR FOOT LT WO CON, 07/16/2022, 15:20. FINDINGS: Image quality: Excellent. Bones and joints: Osseous edema is again seen within the 3rd and 4th metatarsals. At the 3rd metatarsal, the extent of osseous edema has decreased when compared to the prior MRI from 07/16/2022, consistent with progressive healing. Edema at the 4th metatarsal shaft has also mildly decreased, and is overall less severe compared to the 3rd metatarsal. Scattered degenerative changes are seen at the interphalangeal joints of the toes. Soft tissues: Mild soft tissue edema is seen at the dorsum of the foot. The visualized plantar foot muscles demonstrate normal signal and bulk. Visualized flexor and extensor tendons appear intact, without tenosynovitis. The distal insertions of the peroneus brevis and longus tendons appear intact. The principal Lisfranc ligament appears intact. No soft tissue ganglion cysts or bursal fluid collections. Sagittal images demonstrate no evidence for plantar plate tears. IMPRESSION: 1. Progressive healing involving the nondisplaced stress fracture of the 3rd metatarsal base with decreased osseous edema when compared to the MRI from 07/16/2022. 2. Mildly decreased osseous edema within the proximal 4th metatarsal shaft again likely represents mildly improving stress reaction. Approved by: Dakota Lu M.D. on 11/13/2022 at 8:42
--- NOTE | 2022-11-12 15:58 | DI.MRI.S_ITS ---
PROCEDURE: MR FOOT RT WO CON INDICATIONS: BILATERAL FOOT FX TECHNIQUE: Noncontrast sagittal T1 spin echo and T2 fast spin echo with fat saturation, long-axis T1 spin echo and STIR, short-axis T1 spin echo and T2 fast spin echo with fat saturation through the forefoot. COMPARISON: [facility], MR, MR FOOT RT WO CON, 08/14/2022, 7:37. FINDINGS: Image quality: Excellent. Bones and joints: Osseous edema is again seen within the proximal 3rd and 4th metatarsals. The distribution of edema does not appear significantly changed when compared to the MRI from 08/14/2022. Mild adjacent soft tissue edema is again seen. No discrete fracture line or definite periosteal new bone formation is seen. Subchondral cystic changes again noted in the navicular. Scattered degenerative changes are seen at the interphalangeal joints of the toes. Soft tissues: Mild soft tissue edema adjacent to the 3rd and 4th metatarsal bases. There is also mild subcutaneous soft tissue edema at the dorsum of the foot. The intrinsic foot musculature is normal in bulk and signal intensity. Visualized flexor and extensor tendons appear intact, without tenosynovitis. The distal insertions of the peroneus brevis and longus tendons appear intact. The principal Lisfranc ligament appears intact. No soft tissue ganglion cysts or bursal fluid collections. Sagittal images demonstrate no evidence for plantar plate tears. IMPRESSION: Osseous edema within the proximal 3rd and 4th metatarsal shafts does not appear significantly changed in extent when compared to the MRI from 08/14/2022, again suspicious for mild stress reaction. No discrete osseous fracture line or significant periosteal thickening is seen. Approved by: Dakota Lu M.D. on 11/13/2022 at 8:37
== END ==
PROVIDERS: PCP Family Medicine; Referring Provider Family Medicine; Visit Provider Family Medicine
DX: M84.375D Stress fracture, left foot, subsequent encounter for fracture with routine healing (principal)
CPT/HCPCS: 73718

== ENCOUNTER → 2023-05-13 15:58 | Outpatient (CLI) | payer OTHER, SELFPAY ==
--- NOTE | 2023-05-13 16:16 | DI.US.S_ITS ---
PROCEDURE: US RENAL COMPLETE INDICATIONS: HEMATURIA TECHNIQUE: Real-time scanning was performed of the kidneys and bladder, with image documentation. COMPARISON: None. FINDINGS: Kidneys: Kidneys are normal in size. Right kidney measures 13.9 cm long; left kidney measures 13.9 cm long. Right renal cortical thickness is 2.7 cm; left renal cortical thickness is 2.4 cm. Renal cortical echotexture is normal. No hydronephrosis or nephrolithiasis. No suspicious solid mass lesions. Bladder: Bladder is not distended Miscellaneous: No free pelvic fluid. IMPRESSION: Normal renal ultrasound. Dictated by: Osmany Hawk M.D. on 05/13/2023 at 16:23 Approved by: Osmany Hawk M.D. on 05/13/2023 at 16:24
== END ==
PROVIDERS: PCP Family Medicine; Referring Provider Family Medicine; Visit Provider Family Medicine
DX: R31.9 Hematuria, unspecified (principal)
CPT/HCPCS: 76770

== ENCOUNTER → 2023-05-21 15:10 | Outpatient (ROUT) | payer OTHER, SELFPAY ==
[2023-05-21 15:23] LABS: Add Manual Diff / Slide Review NO; Basophils Absolute Auto 0 /uL (0-100); Basophils Percent Auto 0.5 % (0-2); Eosinophils Absolute Auto 0 /uL (0-450); Eosinophils Percent Auto 0.5 % (2-4); Hematocrit 44.3 % (41-53); Hemoglobin 14.9 g/dL (13.5-17.5); Lymphocytes Absolute Auto 2300 /uL (1100-4500); Lymphocytes Percent Auto 23.7 % (25-40); Mean Corpuscular HGB Conc 33.7 % (30-36); Mean Corpuscular Hemoglobin 28.5 PG (26-34); Mean Corpuscular Volume 84.7 fL (80-100); Monocytes Absolute Auto 600 /uL (0-900); Monocytes Percent Auto 6.5 % (3-14); Neutrophils Absolute Auto 6600 /uL (1500-7000); Neutrophils Percent Auto 68.8 % (50-75); Platelet Count 267 X10^3/uL (150-400); Red Blood Cell Count 5.23 X10^6/uL (4.5-5.9); Red Cell Distribution Width 13.9 % (11.6-14.8); White Blood Cell Count 9.5 X10^3/uL (4.5-11.0)
[2023-05-21 15:44] LABS: Erythrocyte Sedimentation Rate 11 MM/HR (0-15)
[2023-05-21 15:54] LABS: Alanine Aminotransferase 59 IU/L (<50); Albumin 4.6 g/dL (3.5-5.0); Albumin Globulin Ratio 1.4 (1.0-2.8); Alkaline Phosphatase 64 U/L (38-126); Aspartate Aminotransferase 42 IU/L (17-59); BUN Creatinine Ratio 22.8 (6-22); Bilirubin Total 0.5 mg/dL (0.2-1.3); Blood Urea Nitrogen 21 mg/dL (9-20); C-Reactive Protein Quant 1.6 mg/dL (<1.0); Calcium 9.8 mg/dL (8.4-10.2); Carbon Dioxide 28 mmol/L (22-32); Chloride 102 mmol/L (98-107); Estimated Glomerular Filt Rate > 60 mL/min (>60); Globulin 3.3 g/dL (1.7-4.1); Glucose 79 mg/dL (70-100); HEMOLYSIS 33 (0-50); Potassium 4.3 mmol/L (3.4-5.1); Sodium 138 mmol/L (137-145); Total Protein 7.9 g/dL (6.3-8.2)
[2023-05-21 16:20] LABS: Prostate Specific Antigen 0.881 ng/mL (0.10-4.00)
[2023-05-26 20:55] LABS: ANA Screen, IFA Negative (.)
== END ==
PROVIDERS: PCP Family Medicine; Visit Provider Family Medicine
DX: Z13.9 Encounter for screening, unspecified (principal)
CPT/HCPCS: 80053; 84153; 85025; 85651; 86038; 86140

== ENCOUNTER 2023-10-14 11:28 | Emergency (ER) | payer OTHER, SELFPAY ==
[2023-10-14] VITALS (29 sets, daily range): BP systolic 145–209; BP diastolic 79–110; PULSE 62–80; RESP 18–31; TEMP 36.9; O2SAT 96–100; BMI 38.5
--- NOTE | 2023-10-14 11:36 | DI.RAD.S_ITS ---
PROCEDURE: XR CHEST 1V INDICATIONS: chest pain TECHNIQUE: One view of the chest was acquired. COMPARISON: None. FINDINGS: Surgical changes and devices: None. Lungs and pleura: Lungs are clear. No pleural effusions or pneumothorax. Mediastinum: Mediastinal contours appear normal. Heart size is mildly prominent. Bones and chest wall: No suspicious bony lesions. Overlying soft tissues appear unremarkable. IMPRESSION: No acute pulmonary process. Dictated by: Agnes Johnson M.D. on 10/14/2023 at 12:17 Approved by: Agnes Johnson M.D. on 10/14/2023 at 12:17
[2023-10-14 12:09] LABS: Add Manual Diff / Slide Review NO; Basophils Absolute Auto 100 /uL (0-100); Eosinophils Absolute Auto 100 /uL (0-450); Eosinophils Percent Auto 0.7 % (2-4); Hematocrit 44.2 % (41-53); Hemoglobin 14.8 g/dL (13.5-17.5); Lymphocytes Absolute Auto 1800 /uL (1100-4500); Lymphocytes Percent Auto 19.6 % (25-40); Mean Corpuscular HGB Conc 33.6 % (30-36); Mean Corpuscular Hemoglobin 28.5 PG (26-34); Mean Corpuscular Volume 84.9 fL (80-100); Monocytes Absolute Auto 800 /uL (0-900); Monocytes Percent Auto 8.9 % (3-14); Neutrophils Absolute Auto 6200 /uL (1500-7000); Neutrophils Percent Auto 69.8 % (50-75); Platelet Count 254 X10^3/uL (150-400); Red Blood Cell Count 5.21 X10^6/uL (4.5-5.9); Red Cell Distribution Width 14.3 % (11.6-14.8); White Blood Cell Count 8.9 X10^3/uL (4.5-11.0)
--- NOTE | 2023-10-14 12:15 | ED.CHESTPAIN ---
HPI - Chest Pain General Chief Complaint: Chest Pain Stated Complaint: sent by Dr. Love, heart problems Time Seen by Provider: 10/14/23 12:15 Source: patient Mode of arrival: Ambulatory Limitations: no limitations History of Present Illness HPI narrative: 43-year-old gentleman with BMI of 38.5, untreated hypertension for a number of years and recently began taking his lisinopril hydrochlorothiazide a week ago, recent sinus congestion and over the last couple of days he feels that he has had more pulmonary congestion with cough in the last 4 days nonproductive, not describing fevers or chills. Notes over the last 24-36 hours he has been having exertional dyspnea. Was fatigued yesterday sent home from work this morning still having exertional dyspnea and when he went to work and went up and down the stairs twice use able to reproduce the central chest pain, tightness central cold sensation and the dyspnea all of which resolved at rest. He was seen by the physician on site was concerned about some minor lateral ST changes and sent him for further emergency department evaluation. He has not recently had any nausea, vomiting, diarrhea. No abdominal pain no headaches. He notes that he smokes an occasional cigar but stopped smoking cigarettes a number of years ago. No recreational drugs Related Data Home Medications Medication Instructions Recorded Confirmed [ANTIBIOTIC-UNKNOWN] ##0 06/20/08 [PAIN MEDICATION-UNK] ##0 06/20/08 Previous Rx's Medication Instructions Recorded hydrocodone 5 mg-acetaminophen 325 1 tab PO Q4-6H PRN pain #10 tabs 03/19/19 mg tablet ketorolac 10 mg tablet 10 mg PO Q6H PRN pain #14 tabs 03/19/19 ondansetron 4 mg disintegrating 4 mg PO TID-QID PRN nausea and 03/19/19 tablet vomiting #10 tabs tamsulosin 0.4 mg capsule (Flomax) 0.4 mg PO DAILY #10 caps 03/19/19 Allergies Allergy/AdvReac Type Severity Reaction Status Date / Time No Known Drug Allergies Allergy Verified 05/29/22 12:06 Review of Systems Review of Systems Narrative: Pertinent positive and negative findings as per HPI Patient History Medical History (Updated 10/14/23 @ 14:46 by Lisa Cosme MD) Hypertension Social History Smoking Status: Current every day smoker Smoking Status: Current every day smoker tobacco type: cigars alcohol intake frequency: 3 or more drinks per day Substance Use Type: does not use Exam Initial Vital Signs Initial Vital Signs: Vital Signs Temperature 98.5 F 10/14/23 11:31 Pulse Rate 80 10/14/23 11:31 Respiratory Rate 18 10/14/23 11:31 Blood Pressure 169/85 H 10/14/23 11:31 Pulse Oximetry 97 10/14/23 11:31 Oxygen Delivery Method Room Air 10/14/23 11:31 General: Healthy appearing, in no acute distress. Able to give a complete and coherent history. Well-nourished well-developed HEENT: Moist mucous membranes, normal sclera with reactive pupils, Neck: No JVD, supple Respiratory: Lungs are clear to auscultation, no wheezing no rales no rhonchi. Full and symmetrical air movement Cardiac: Regular rate and rhythm no murmurs no bruits Abdomen: Soft, nontender, good bowel tones, no flank pain Skin: Warm and dry, no rashes Neurologic: Grossly neurologically intact with no obvious asymmetries or abnormalities Extremities: No trauma, well perfused Psych: Cooperative, appropriate insight and affect Course Orders Ordered: ED Orders 10/14/23 11:36 XR chest 1V Stat 10/14/23 11:42 EKG-12 Lead Stat 10/14/23 11:59 BNP [NT-proBNP (BNP-Adult 18+)] Stat Complete Blood Count AUTO DIFF Stat Comprehensive Metabolic Panel Stat Lipase Stat Magnesium Stat PTT Partial Thromboplastin Vish Stat Prothrombin Time INR Stat Troponin & CK Cardiac Panel Stat 10/14/23 14:27 PTT Partial Thromboplastin Vish Q6H Trop I [Troponin I] Stat 10/14/23 19:15 PTT Partial Thromboplastin Vish Q6H 10/15/23 01:15 PTT Partial Thromboplastin Vish Q6H 10/15/23 05:00 Hemoglobin and Hematocrit DAILY Platelet Count DAILY 10/15/23 07:15 PTT Partial Thromboplastin Vish Q6H 10/16/23 05:00 Hemoglobin and Hematocrit DAILY Platelet Count DAILY Heparin Sodium/Dextrose (Heparin Drip) 25,000 unit in 500 mls @ 32.659 mls/hr IV CONT BRAVO; Protocol Last Admin: 04/24/24 13:29 Dose: 12 units/kg/hr, 32.659 mls/hr Documented By: VU Co-signed By: [facility] Discontinued Medications Aspirin (Aspirin 81 Mg Chew Tab) 324 mg PO NOW ONE Stop: 10/14/23 11:37 Last Admin: 10/14/23 12:24 Dose: 324 mg Documented By: VU(2) Heparin Sodium (Porcine) (Heparin 5,000 Unit/Ml Vial) 5,000 unit IV NOW ONE Stop: 10/14/23 13:13 Last Admin: 10/14/23 13:28 Dose: 5,000 unit Documented By: VU Vital Signs Vital signs: Vital Signs - 8 hr 10/14/23 11:31 10/14/23 11:46 10/14/23 11:46 Temperature 98.5 F Pulse Rate 80 79 Respiratory Rate 18 22 Blood Pressure 169/85 H 169/96 H Pulse Oximetry 97 97 Oxygen Delivery Method Room Air 10/14/23 12:00 10/14/23 12:01 10/14/23 12:01 Temperature Pulse Rate 80 80 Respiratory Rate 23 31 H Blood Pressure 157/80 H Pulse Oximetry 97 96 Oxygen Delivery Method 10/14/23 12:30 10/14/23 12:30 10/14/23 13:00 Temperature Pulse Rate 74 75 Respiratory Rate 24 24 Blood Pressure 152/79 H Pulse Oximetry 97 97 Oxygen Delivery Method Room Air 10/14/23 13:00 10/14/23 13:30 10/14/23 13:30 Temperature Pulse Rate 74 Respiratory Rate 23 Blood Pressure 152/94 H 152/88 H Pulse Oximetry 97 Oxygen Delivery Method 10/14/23 14:00 10/14/23 14:00 10/14/23 14:30 Temperature Pulse Rate 71 77 Respiratory Rate 21 20 Blood Pressure 159/87 H Pulse Oximetry 97 96 Oxygen Delivery Method 10/14/23 14:51 10/14/23 14:51 10/14/23 15:00 Temperature Pulse Rate 71 66 Respiratory Rate 25 H 24 Blood Pressure 157/81 H Pulse Oximetry 96 97 Oxygen Delivery Method Room Air 10/14/23 15:00 10/14/23 15:30 10/14/23 15:38 Temperature Pulse Rate 76 69 Respiratory Rate 24 Blood Pressure 145/83 H Pulse Oximetry 97 97 Oxygen Delivery Method 10/14/23 15:38 10/14/23 16:00 10/14/23 16:00 Temperature Pulse Rate 64 Respiratory Rate Blood Pressure 168/98 H 157/84 H Pulse Oximetry 97 Oxygen Delivery Method 10/14/23 16:30 10/14/23 16:30 10/14/23 17:00 Temperature Pulse Rate 68 63 Respiratory Rate Blood Pressure 163/87 H Pulse Oximetry 96 97 Oxygen Delivery Method Room Air MDM - Chest Pain Lab Data 10/14/23 11:59 10/14/23 11:59 Labs: Lab Results 10/14/23 10/14/23 Range/Units 11:59 14:27 WBC 8.9 (4.5-11.0) X10^3/uL RBC 5.21 (4.5-5.9) X10^6/uL Hgb 14.8 (13.5-17.5) g/dL Hct 44.2 (41-53) % MCV 84.9 (80-100) fL MCH 28.5 (26-34) PG MCHC 33.6 (30-36) % RDW 14.3 (11.6-14.8) % Plt Count 254 (150-400) X10^3/uL Neut % (Auto) 69.8 (50-75) % Lymph % (Auto) 19.6 L (25-40) % Donley % (Auto) 8.9 (3-14) % Eos % (Auto) 0.7 L (2-4) % Baso % (Auto) 1.0 (0-2) % Neut # (Auto) 6200 (1085-9885) /uL Lymph # (Auto) 1800 (8921-4171) /uL Donley # (Auto) 800 (0-900) /uL Eos # (Auto) 100 (0-450) /uL Baso # (Auto) 100 (0-100) /uL PT 12.1 (9.4-12.5) SECONDS INR 1.1 (0.9-1.3) APTT 37 H 122 H* D (25.1-36.5) SECONDS Sodium 136 L (137-145) mmol/L Potassium 4.1 (3.4-5.1) mmol/L Chloride 100 (98-107) mmol/L Carbon Dioxide 30 (22-32) mmol/L BUN 20 (9-20) mg/dL Creatinine 0.87 (0.66-1.25) mg/dL Estimated GFR > 60 (>60) mL/min BUN/Creatinine Ratio 23.0 H (6-22) Glucose 118 H (70-100) mg/dL Calcium 9.2 (8.4-10.2) mg/dL Magnesium 1.8 (1.6-2.3) mg/dL Total Bilirubin 0.5 (0.2-1.3) mg/dL AST 36 (17-59) IU/L ALT 49 (<50) IU/L Alkaline Phosphatase 63 (38-126) U/L Total Creatine Kinase 349 H (55-170) U/L Troponin I 0.486 H* 0.615 H* (0.01-0.034) ng/mL NT-Pro-B Natriuret Pep 78 (<125) pg/mL Total Protein 7.8 (6.3-8.2) g/dL Albumin 4.6 (3.5-5.0) g/dL Globulin 3.2 (1.7-4.1) g/dL Albumin/Globulin Ratio 1.4 (1.0-2.8) Lipase 66 (23-300) U/L MDM Narrative Medical decision making narrative: CC: Exertional chest pain and dyspnea over the last 24 hours Complicating co-morbidities: Untreated hypertension, BMI of 38.5 Data collected from: patient Social determinants of health that may influence the patients condition: Reluctant to interact with the medical community and take medications Medical records reviewed: 2 ER visits for minor ailments over the last few years reviewed Differential considered: Unstable angina, acute coronary syndrome, STEMI, viral syndrome, pneumonia Exam documented above, pertinent findings include: Exam is relatively benign. He has not dyspneic nor experiencing pain at rest. Lung exam is entirely benign Lab Test results independently reviewed as above. Pertinent findings: CBC is unremarkable Chemistries are unremarkable with normal potassium and creatinine. No liver changes Initial troponin is positive at 0.486 Independently reviewed EKG: EKG shows sinus rhythm at a rate of 79. Lateral ST changes without ST elevation EKGs that were done in clinic earlier this morning or provided and are similar to that obtained in the ER Imaging studies independently reviewed: Chest x-ray is unremarkable Consultations: Cardiology at [facility], Dr. Waggoner accepts admission with patient going to the hospitalist service. Reviewed with Dr. Almaraz, when telemetry bed is available patient is accepted. Treatments: Tubal aspirin, heparin drip Re-evaluations:120pm explained the positive troponin, need for heparin, concern for acute coronary syndrome/NSTEMI. Patient would prefer to go home. He states that today's episode is not nearly as bad as the multiple episodes he has been having over the last week to 2 weeks. Explained to him that that additional history was additionally concerning. Long discussion regarding heart attack and its various permutations informs now with the elevated troponin we have definitive evidence of significant disease that needs further evaluation. He states understanding and is willing to continue with current plan with heparin and attempts to find a bed with cardiac catheterization capacity Discussion: 43-year-old gentleman with untreated hypertension for a number of years exertional dyspnea increasing over the last at least 1-2 weeks. Increasing dyspnea reproducible today walking up stairs sent in for further evaluation. His EKG does not suggest STEMI, his initial troponin is elevated at 0.486. When elevated troponin returned he was started on a heparin drip and at that point his blood pressure is down to 152/79. Care is reviewed with search analyst Dr. Waggoner. Accepts the patient, we did discuss beginning either parenteral nicardipine or nitroglycerin for blood pressure control but at this point in the absence of any pain or dyspnea will hold on additional medication. 530pm bed is available and ALS transport is being arranged. Patient remains stable on heparin drip currently pain and dyspnea free Critical Care Time Critical Care Time Critical Care Time: Yes Total Critical Care Time: 33 Attestation: Critical care time is separate from other billable procedures. There is a high probability of a significant, sudden or life-threatening deterioration that requires my full and direct attention, intervention and personal management. This critical care time includes consultation with family and other consulting doctors, review of records, and interpretation of data from labs, EKGs and imaging as well as managements of NSTEMI with IV heparin and multiple phone calls to various hospitals for bed availability and finally accepting physicians at [facility]. Discharge Plan Departure Patient Disposition: [facility] Clinical Impression: Acute non-ST elevation myocardial infarction (NSTEMI), Hypertensive crisis Prescriptions: No Action [ANTIBIOTIC-UNKNOWN] Qty: 0 [PAIN MEDICATION-UNK] Qty: 0 tamsulosin [Flomax] 0.4 mg capsule 0.4 mg PO DAILY Qty: 10 0RF hydrocodone-acetaminophen 5-325 mg tablet 1 tab PO Q4-6H PRN (Reason: pain) Qty: 10 0RF ketorolac 10 mg tablet 10 mg PO Q6H PRN (Reason: pain) Qty: 14 0RF ondansetron 4 mg tablet,disintegrating 4 mg PO TID-QID PRN (Reason: nausea and vomiting) Qty: 10 0RF Referrals: Aspen Love MD [Primary Care Provider] -
[2023-10-14] MEDS: ASPIRIN 81 MG CHEW TAB 324 MG PO (12:24)
[2023-10-14 12:29] LABS: INR 1.1 (0.9-1.3); Prothrombin Time 12.1 SECONDS (9.4-12.5)
[2023-10-14 12:32] LABS: PTT Partial Thromboplastin Tim 37 SECONDS (25.1-36.5)
[2023-10-14 12:37] LABS: Alanine Aminotransferase 49 IU/L (<50); Albumin 4.6 g/dL (3.5-5.0); Albumin Globulin Ratio 1.4 (1.0-2.8); Alkaline Phosphatase 63 U/L (38-126); Aspartate Aminotransferase 36 IU/L (17-59); Bilirubin Total 0.5 mg/dL (0.2-1.3); Blood Urea Nitrogen 20 mg/dL (9-20); Calcium 9.2 mg/dL (8.4-10.2); Carbon Dioxide 30 mmol/L (22-32); Chloride 100 mmol/L (98-107); Creatine Kinase 349 U/L (55-170); Estimated Glomerular Filt Rate > 60 mL/min (>60); Globulin 3.2 g/dL (1.7-4.1); Glucose 118 mg/dL (70-100); HEMOLYSIS < 15 (0-50); Lipase 66 U/L (23-300); Magnesium 1.8 mg/dL (1.6-2.3); Potassium 4.1 mmol/L (3.4-5.1); Sodium 136 mmol/L (137-145); Total Protein 7.8 g/dL (6.3-8.2)
[2023-10-14 12:46] LABS: NT-proBNP (BNP-Adult 18+) 78 pg/mL (<125)
[2023-10-14 13:09] LABS: Troponin I 0.486 ng/mL (0.01-0.034)
[2023-10-14] MEDS: HEPARIN 5,000 UNIT/ML VIAL 5000 UNIT IV (13:28)
[2023-10-14] MEDS: HEPARIN DRIP 25,000 UNIT/500 ML IV.SOLN 32.659 UNIT IV (13:29)
--- NOTE | 2023-10-14 14:30 | PC.NURSE ---
PTT collected by unknown lab personnel 1 hour post start of heparin bolus and heparin infusion. Infusion not paused for collection. No changes made to heparin drip due to lab drawn in error and not per protocol time.
[2023-10-14 15:20] LABS: PTT Partial Thromboplastin Tim 122 SECONDS (25.1-36.5)
[2023-10-14 15:23] LABS: Troponin I 0.615 ng/mL (0.01-0.034)
--- NOTE | 2023-10-14 18:05 | PC.NURSE ---
Pt reports chest pressure and tightness that is a 3/10 and started about 10 mins ago. Pt blood pressure elevated. Notified provider Carmelina of patient presentation and vitals.
[2023-10-14] MEDS: NITROGLYCERIN 50 MG/250 ML INFUS..BTL IV (18:34)
--- NOTE | 2023-10-14 18:36 | PC.NURSE ---
oxygen at 2 liters placed on patient. spo2 98 percent
== END 2023-10-14 19:09 | disposition short-term general hospital (02) ==
PROVIDERS: Emergency Provider Emergency Medicine; PCP Family Medicine
DX: I21.4 Non-ST elevation (NSTEMI) myocardial infarction (principal); I16.9 Hypertensive crisis, unspecified
CPT/HCPCS: 36415; 71045; 80053; 82550; 83690; 83735; 83880; 84484; 85025; 85610; 85730; 93005; 96365; 96366; 96368; 96375; 99285; 99291; J1644

== ENCOUNTER → 2024-04-29 13:44 | Outpatient (CLI) | payer OTHER, SELFPAY ==
--- NOTE | 2024-04-29 13:45 | DI.CT.S_ITS ---
PROCEDURE: CT HEAD/BRAIN WO CON INDICATIONS: HEAD INJURY ON EFFIENT TECHNIQUE: Noncontrast 4.5 mm thick angled axial sections acquired from the foramen magnum to the vertex, with coronal and sagittal reformats. For radiation dose reduction, the following was used: automated exposure control, adjustment of mA and/or kV according to patient size. COMPARISON: None. FINDINGS: Image quality: Diagnostic. CSF spaces: Basal cisterns are patent. No extra-axial fluid collections. Ventricles are normal in size and shape. Brain: No midline shift. No intracranial masses or hemorrhage. [place]-white matter interface is normal. Skull and face: Calvarium and visualized facial bones are intact, without suspicious lesions. Sinuses: Visualized sinuses and mastoids are clear. IMPRESSION: No acute intracranial pathology. Dictated by: Vikas Colorado M.D. on 04/29/2024 at 14:57 Approved by: Vikas Colorado M.D. on 04/29/2024 at 14:58
== END ==
PROVIDERS: PCP Family Medicine; Referring Provider Family Medicine; Visit Provider Family Medicine
DX: S06.0X0A Concussion without loss of consciousness, initial encounter (principal); X58.XXXA Exposure to other specified factors, initial encounter
CPT/HCPCS: 70450

== ENCOUNTER → 2024-06-28 14:33 | Outpatient (ROUT) | payer OTHER, SELFPAY ==
[2024-06-28 14:42] LABS: Add Manual Diff / Slide Review NO; Basophils Absolute Auto 100 /uL (0-100); Basophils Percent Auto 0.5 % (0-2); Eosinophils Absolute Auto 0 /uL (0-450); Eosinophils Percent Auto 0.5 % (2-4); Hematocrit 43.4 % (41-53); Hemoglobin 14.4 g/dL (13.5-17.5); Lymphocytes Absolute Auto 1900 /uL (1100-4500); Lymphocytes Percent Auto 19.7 % (25-40); Mean Corpuscular HGB Conc 33.2 % (30-36); Mean Corpuscular Hemoglobin 28.3 PG (26-34); Mean Corpuscular Volume 85.5 fL (80-100); Monocytes Absolute Auto 600 /uL (0-900); Monocytes Percent Auto 6.5 % (3-14); Neutrophils Absolute Auto 7000 /uL (1500-7000); Neutrophils Percent Auto 72.8 % (50-75); Platelet Count 288 X10^3/uL (150-400); Red Blood Cell Count 5.07 X10^6/uL (4.5-5.9); Red Cell Distribution Width 14.1 % (11.6-14.8); White Blood Cell Count 9.6 X10^3/uL (4.5-11.0)
[2024-06-28 15:08] LABS: BUN Creatinine Ratio 15.2 (6-22); Blood Urea Nitrogen 15 mg/dL (9-20); Calcium 9.5 mg/dL (8.4-10.2); Carbon Dioxide 30 mmol/L (22-32); Chloride 100 mmol/L (98-107); Estimated Glomerular Filt Rate > 60 mL/min (>60); Glucose 103 mg/dL (70-100); HEMOLYSIS < 15 (0-50); Potassium 5.3 mmol/L (3.4-5.1); Sodium 139 mmol/L (137-145)
== END ==
PROVIDERS: PCP Family Medicine; Visit Provider Family Medicine
DX: G89.29 Other chronic pain (principal); M25.511 Pain in right shoulder; I10 Essential (primary) hypertension
CPT/HCPCS: 80048; 83036; 85025